=== PATIENT | female | born 1935 | race Caucasian/White ===

== ENCOUNTER 2020-05-15 16:17 | Emergency (ER) | payer OTHER ==
[~2020-05-15] VITALS: Ht 147.3 cm; Wt 56.2 kg
[2020-05-15] MEDS ORDERED: LEVOTHYROXINE25 MCG (16:28)
[2020-05-15] MEDS ORDERED: ENALAPRIL MALE2.5 MG (16:29)
[2020-05-15] MEDS ORDERED: GLIMEPIRIDE1 MG (16:29)
[2020-05-16] MEDS ORDERED: CIPRO500 MG PO (00:22)
== END 2020-05-16 00:59 | disposition home or self-care (01) ==
LOC: ER 16:17
DX: K57.90 Diverticulosis of intestine, part unspecified, without perforation or abscess without bleeding (principal); Z03.818 Encounter for observation for suspected exposure to other biological agents ruled out

== ENCOUNTER 2020-05-20 12:06 | Inpatient (IN) | payer OTHER ==
[~2020-05-20] VITALS: Ht 147.3 cm; Wt 55.8 kg
[~2020-05-20 12:06] MED LIST: CIPRO500 MG PO; ENALAPRIL MALE2.5 MG; GLIMEPIRIDE1 MG; LEVOTHYROXINE25 MCG
[2020-05-20] MEDS ORDERED: ANASTROZOLE1 MG (12:43)
[2020-05-20] MEDS ORDERED: TRANDOLAPRIL1 MG (12:43)
[2020-05-20] MEDS ORDERED: ATORVASTATIN CA10 MG (12:44)
[2020-05-20] MEDS ORDERED: GLIMEPIRIDE1 M1 (12:44)
--- NOTE | 2020-05-20 12:48 | NUR ---
SE RECIBE PACIENTE ALERTA Y ORIENTADA EN LAS KB ESFERAS. PACIENTE VIENE CON REFERIDO DEL DR. SHIN [place] RECTAL.AL MOMENTO DEL TRIAGE LA PACIENTE NO PRESENTA DOLOR. SE KELLY SIGNOS VITALES Y SE UBICA A PACIENTE EN AREA DE OBSERVACION.
--- NOTE | 2020-05-20 13:15 | NUR ---
MR Valentino JOEL COLECTA MUESTRAS DE KERRY, CANALIZA VENA Y ADMINISTRA CORINA. SE HACE ENTREGA DE CONSTRASTE READYCAT CON INSTRUCCIONES.
--- NOTE | 2020-05-20 15:30 | NUR ---
SE RECIBE PTE FEMENINA ALERTA Y ORIENTADA EN LAS KB ESFERAS DEL TURNO ANTERIOR, PTE CON BUEN PATRON RESPOIRATORIO Y NO REFIERE DOLOR AL MOMENTO. VENOPUNCION PATENTE, JR DE EDEMA Y ERITEMA RECIBEIENDO TERAPIA DE IVFS 0.9NSS BAJANDO A 150ML/HR. PEDNIENETE RESULTADOS DE LABORATORIO Y ESTUDIO CT.
[2020-05-21] MEDS ORDERED: XGEVA120 MG/1.7 (09:52)
[2020-05-21] MEDS ORDERED: SIMVASTATIN10 MG (09:52)
[2020-05-21] MEDS ORDERED: CLOTRIMAZOLE-BE15 G1 (09:52)
== END 2020-05-24 22:35 | disposition home or self-care (01) | DRG 378 ==
LOC: ER 12:06 → SURH 19:36
PROVIDERS: ADMIT Internal Medicine; ATTEND Internal Medicine
PROC: 30233N1 Transfusion of Nonautologous Red Blood Cells into Peripheral Vein, Percutaneous Approach (ICD-10-PCS; 2020-05-21)
PROC: 0DB78ZX Excision of Stomach, Pylorus, Via Natural or Artificial Opening Endoscopic, Diagnostic (ICD-10-PCS; principal; 2020-05-23)
PROC: 0DJD8ZZ Inspection of Lower Intestinal Tract, Via Natural or Artificial Opening Endoscopic (ICD-10-PCS; 2020-05-24)
DX: K62.5 Hemorrhage of anus and rectum (principal); C79.51 Secondary malignant neoplasm of bone; D64.9 Anemia, unspecified; I10 Essential (primary) hypertension; C50.511 Malignant neoplasm of lower-outer quadrant of right female breast; K26.9 Duodenal ulcer, unspecified as acute or chronic, without hemorrhage or perforation; Z79.4 Long term (current) use of insulin; Z20.822 Contact with and (suspected) exposure to COVID-19

== ENCOUNTER 2022-10-14 10:54 | Emergency (ER) | payer OTHER ==
[~2022-10-14] VITALS: Ht 149.9 cm; Wt 38.1 kg
[~2022-10-14 10:54] MED LIST changes: +ANASTROZOLE1 MG; +ATORVASTATIN CA10 MG; +CLOTRIMAZOLE-BE15 G1; +GLIMEPIRIDE1 M1; +SIMVASTATIN10 MG; +TRANDOLAPRIL1 MG; +XGEVA120 MG/1.7
[2022-10-14] MEDS ORDERED: PEPCID AC20 MG PO (17:03)
[2022-10-14] MEDS ORDERED: ZOFRAN8 MG PO (17:03)
== END 2022-10-14 17:27 | disposition home or self-care (01) ==
LOC: ER 10:54
DX: K29.00 Acute gastritis without bleeding (principal); R11.10 Vomiting, unspecified; Z91.013 Allergy to seafood; Z85.3 Personal history of malignant neoplasm of breast; E78.00 Pure hypercholesterolemia, unspecified; I10 Essential (primary) hypertension

== ENCOUNTER 2025-03-12 07:56 | Outpatient (CLI) | payer OTHER ==
[~2025-03-12 07:56] MED LIST changes: +PEPCID AC20 MG PO; +ZOFRAN8 MG PO
== END 2025-03-12 08:08 | disposition home or self-care (01) ==
LOC: SONOGRAMA 07:56
PROVIDERS: ATTEND Internal Medicine
DX: C50.811 Malignant neoplasm of overlapping sites of right female breast (principal); C79.51 Secondary malignant neoplasm of bone; C78.89 Secondary malignant neoplasm of other digestive organs

== ENCOUNTER 2025-03-15 07:23 | Outpatient (CLI) | payer OTHER | END 2025-03-15 07:24 | disposition home or self-care (01) | LOC: NUCLEAR 07:23 | PROVIDERS: ATTEND Internal Medicine | DX: C50.811 Malignant neoplasm of overlapping sites of right female breast (principal); C79.51 Secondary malignant neoplasm of bone; C78.89 Secondary malignant neoplasm of other digestive organs | CPT/HCPCS: 78816; A9552 ==